=== PATIENT | female | born 1995 | race Caucasian/White ===

== ENCOUNTER 2016-08-01 19:04 | Emergency (ER) | payer OTHER ==
[~2016-08-01] VITALS: Ht 157.5 cm; Wt 59.0 kg
[2016-08-01 19:45] VITALS: BP 128/85
[2016-08-01] MEDS ORDERED: PROMETHAZINE 25 MG in IV NORMAL SALINE 50ML 50 ML IV PRN (20:15)
[2016-08-01] MEDS ORDERED: SUMATRIPTAN 6 MG/0.5 ML VIAL. SQ ONE (20:15)
[2016-08-01] MEDS ORDERED: HALOPERIDOL LACT 5 MG/ML VIAL. IVP ONE (20:15)
[2016-08-01] MEDS ORDERED: IV NORMAL SALINE 1,000ML 1,000 ML IV SCH (20:15)
[2016-08-01] MEDS ORDERED: PROMETHAZINE 25 MG/ML VIAL IV ONE ×2 (20:17→20:21)
[2016-08-01] MEDS ORDERED: IV NORMAL SALINE 50ML 50 ML ONE (20:18)
[2016-08-01 20:31] LABS: AMPHETAMINE/METHAMPHETAMINE NEG (NEG); BARBITURATES NEG (NEG); BENZODIAZEPINES NEG (NEG); CANNABINOIDS NEG (NEG); COCAINE NEG (NEG); METHADONE NEG (NEG); OPIATES NEG (NEG); PHENCYCLIDINE NEG (NEG)
[2016-08-01 20:51] LABS: BILIRUBIN,URINE NEG (NEG); CLARITY,URINE HAZY; COLOR,URINE YELLOW; GLUCOSE,URINE NEG (NEG)
[2016-08-01 20:52] LABS: NITRITE,URINE NEG (NEG); UROBILINOGEN,URINE 0.2 mg/dL (0.2 mg/dL)
[2016-08-01 20:54] LABS: BACTERIA,URINE FEW /HPF (0-FEW); SQUAMOUS EPITHELIAL CELL,UR MOD /LPF
--- NOTE | 2016-08-01 21:01 | PHYS DOC ---
General Chief Complaint: HEADACHE Stated Complaint: SEVERE HEADACHE,VOMITING,DIZZY Time Seen by MD: 19:24 Source: patient Exam Limitations: no limitations Problems: History of Present Illness Initial Comments Pt is 21/F to ED c/o migraine. Pt state HARRISON x 24 hours, L sided, sharp/throbbing no aura/scotoma/focal neurodeficits +n/v. HARRISON is pt normal migraine not "worst of life." Has had negative imaging in past, OTC meds not working. Pt follows at [place]. No fever /neck stiffness/rash, no head trauma/neck pain. Timing/Duration: 24 hours Severity: severe Modifying Factors: improves with medication Associated Symptoms: headaches, nausea/vomiting, other Allergies: Coded Allergies: No Known Allergies (Verified Allergy, Unknown, 08/01/16) Past Medical History Medical History: other (migraine) Surgical History: noncontributory Social History Smoker: non-smoker Alcohol: none Drugs: none Review of Systems Constitutional: denies chills, denies diaphoresis, denies fever, malaise EENTM: see HPIdenies blurred vision, denies ear pain, denies nose pain, denies throat pain Respiratory: denies cough, denies shortness of breath, denies wheezing Cardiovascular: denies chest pain, denies palpitations, denies syncope Gastrointestinal: denies abdominal pain, denies diarrhea, nausea vomiting Musculoskeletal: denies back pain, denies joint swelling, denies neck pain Psychiatric/Neurological: see HPI headachedenies numbness, denies paresthesia , denies weakness Physical Exam General Appearance: WD/WN, moderate distress Eyes: bilateral eye EOMI, bilateral eye PERRL, bilateral eye normal inspection Ear, Nose, Throat: hearing grossly normal, normal ENT inspection, normal pharynx Neck: non-tender, supple Respiratory: normal breath sounds, no respiratory distress Cardiovascular: normal peripheral pulses, regular rate, rhythm Gastrointestinal: non tender, soft Back: no CVA tenderness, no vertebral tenderness Extremities: non-tender, normal inspection Neurologic/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 Departure Time of Disposition: 21:01 Disposition: 01 HOME, SELF-CARE Diagnosis: migraine Condition: IMPROVED Patient Instructions: Migraine Headache, [id number] Additional Instructions: Rest, no strenuous activity. No driving or operating machinery while sedated with meds. OTC tylenol/ibuprofen as needed. Rx: imitrex, take as directed. Follow up on Post Saturday. Work excuse today. Return to ED with new or changing symptoms. JANEY SALAZAR DO Aug 01, 2016 21:01
[2016-08-01] MEDS ORDERED: SUMA100T4 PO (21:04)
== END 2016-08-01 21:10 | disposition home or self-care (01) ==
LOC: ER 19:04
DX: G43.909 Migraine, unspecified, not intractable, without status migrainosus (principal)
CPT/HCPCS: 36415; 81001; 96365; 96375; 99284; G0481; J1630; J2550; J7030